=== PATIENT | male | born 1960 | race Caucasian/White ===

== ENCOUNTER 2018-07-05 16:29 | Outpatient (REF) | payer BC, SELFPAY ==
[2018-07-05 18:58] LABS: HCT 40.2 % (40.0-50.0); HGB 14.3 g/dL (13.5-17.5); Mean Corp. HGB Concentration 35.6 g/dL (32.0-36.0); Mean Corpuscular Hemoglobin 31.6 pg (27.0-33.0); Mean Corpuscular Volume 88.9 fL (80-95); Mean Platelet Volume 10.5 fL (8.0-11.0); Platelet Count 267 x1000/uL (130-400); RBC 4.52 m/cumm (4.50-6.00); RBC Distribution Width 12.4 % (11.8-14.1); White Blood Cell Count 7.86 k/cumm (4.4-10.8)
[2018-07-05 19:13] LABS: ALT 24 U/L (12-78); AST 17 U/L (15-37); Albumin 4.1 g/dL (3.4-5.0); Alkaline Phosphatase 92 U/L (46-116); BUN 18 mg/dL (7-18); Bilirubin, Total 0.4 mg/dL (0.2-1.0); CREATININE 0.83 mg/dL (0.70-1.30); Calcium 8.7 mg/dL (8.5-10.1); Chloride 107 mmol/L (98-107); Glucose 90 mg/dL (70-100); Prothrombin Time 9.8 sec (9.3-10.8); Sodium 142 mmol/L (136-145)
[2018-07-09 10:30] LABS: Transferrin 175 mg/dL (201-352)
== END 2018-07-05 16:49 ==
LOC: NCHCN 16:29
PROVIDERS: PCP Physician Assistant Medical; Visit Provider Physician Assistant Medical
DX: Z01.818 Encounter for other preprocedural examination (principal)
CPT/HCPCS: 80053; 85027; 84466; 85610

== ENCOUNTER 2018-10-19 12:53 | Outpatient (REF) | payer BC, SELFPAY ==
[2018-10-19 19:17] LABS: HCT 43.9 % (40.0-50.0); HGB 15.1 g/dL (13.5-17.5); Mean Corp. HGB Concentration 34.4 g/dL (32.0-36.0); Mean Corpuscular Volume 87.1 fL (80-95); Mean Platelet Volume 10.6 fL (8.0-11.0); Platelet Count 278 x1000/uL (130-400); RBC 5.04 m/cumm (4.50-6.00); RBC Distribution Width 12.8 % (11.8-14.1); White Blood Cell Count 6.91 k/cumm (4.4-10.8)
[2018-10-19 19:33] LABS: INR 0.9 (0.9-1.1); Prothrombin Time 9.4 sec (9.3-11.0)
[2018-10-19 19:35] LABS: ALT 23 U/L (12-78); AST 16 U/L (15-37); Albumin 4.4 g/dL (3.4-5.0); Alkaline Phosphatase 88 U/L (46-116); Anion Gap 9.6 mmol/L (3-11); BUN 13 mg/dL (7-18); Bilirubin, Total 0.4 mg/dL (0.2-1.0); CO2 29.4 mmol/L (21.0-32.0); CREATININE 0.84 mg/dL (0.70-1.30); Calcium 9.5 mg/dL (8.5-10.1); Chloride 104 mmol/L (98-107); Glucose 91 mg/dL (70-100); Potassium 4.1 mmol/L (3.5-5.1); Sodium 143 mmol/L (136-145); Total Protein 7.4 g/dL (6.4-8.2)
[2018-10-22 11:50] LABS: Transferrin 223 mg/dL (201-352)
== END 2018-10-19 13:13 ==
LOC: NCHCN 12:53
PROVIDERS: PCP Physician Assistant Medical; Visit Provider Physician Assistant Medical
DX: Z01.818 Encounter for other preprocedural examination (principal); R69 Illness, unspecified
CPT/HCPCS: 80053; 85027; 84466; 85610